=== PATIENT | male | born 1950 | race Caucasian/White ===

== ENCOUNTER 2016-06-14 10:46 | Day surgery (SDC) | payer BC ==
[2016-06-13 13:42] VITALS: BMI 24.1
[~2016-06-14 10:46] MED LIST: GENTAMICIN 400 MG in SODIUM CHLORIDE 0.9% 100 ML IVPB NR
[2016-06-14 11:00] VITALS: RESP 16; TEMP 97.9
[2016-06-14] MEDS ORDERED: LIDOCAINE 2% INJ 20 MG/ML SQ ONE (12:48)
[2016-06-14 13:48] VITALS: BP 149/75; PULSE 66
--- NOTE | 2016-07-23 10:20 | IR ---
EXAMINATION TYPE: IR cvc insert >=5 years DATE OF EXAM: 07/17/2016 12:23 PM COMPARISON: NONE CLINICAL HISTORY: Infection Needs long-term intravenous access for antibiotics. PROCEDURE: After informed consent, the skin overlying the upper extremity vein was localized with ultrasound and noted to be compressible and patent. An ultrasound image was obtained and submitted on the patient' s chart. The overlying skin was prepped and draped and Lidocaine was used for local anesthesia. A s kin teena was made with a scalpel. Access was gained to the vein under ultrasound guidance with a 21 gauge needle and a 0.018 inch wire was advanced. Access site was dilated with Peel-Away sheath and c atheter tailored to the appropriate length and advanced such that the distal tip is at the cavoatrial junction. Spot image was obtained verifying placement. Catheter was fixed to the skin with suture and a sterile dressing was placed following hemostasis. Catheter was aspirated and flushed with sali ne. Patient was discharged in stable condition without complication. Maximal barrier technique is ut ilized. Ultrasound image is documented on the chart. Ultrasound used with sterile technique. Fluoro time and fluoroscopic images submitted to document procedure: 0.2 minutes fluoroscopy time, 28 intraoperative C-arm images document the procedure IMPRESSION: STATUS POST ULTRASOUND AND FLUOROSCOPIC GUIDED PICC LINE PLACEMENT, READY FOR USE. THIS PROCEDURE WAS PERFORMED BY THE UNDERSIGNED.
== END 2016-06-14 14:35 | disposition home or self-care (01) ==
LOC: CATHCVL 10:46
PROVIDERS: ATTEND Radiology Diagnostic Radiology
DX: N39.0 Urinary tract infection, site not specified (principal); R97.21 Rising PSA following treatment for malignant neoplasm of prostate; E78.5 Hyperlipidemia, unspecified; I10 Essential (primary) hypertension; E11.9 Type 2 diabetes mellitus without complications; Z79.84 Long term (current) use of oral hypoglycemic drugs; G35 Multiple sclerosis; Z79.82 Long term (current) use of aspirin; Z79.899 Other long term (current) drug therapy
CPT/HCPCS: 36569; 76937; 77001; C1751; C1769; J2001

== ENCOUNTER → 2016-06-27 | Outpatient (CLI) | payer BC ==
[~2016-06-27] MED LIST changes: -GENTAMICIN 400 MG in SODIUM CHLORIDE 0.9% 100 ML IVPB NR; +SODIUM CHLORIDE 0.9% 250 ML in EMPTY BAG 1 BAG IV PRN; +SODIUM CHLORIDE 0.9% 500 ML in EMPTY BAG 1 BAG IV PRN
[2016-06-27 14:24] VITALS: BP 161/91; PULSE 94; RESP 16; TEMP 97.8
== END | disposition home or self-care (01) ==
LOC: PROCWHC3 13:30
PROVIDERS: ATTEND Urology
DX: Z45.2 Encounter for adjustment and management of vascular access device (principal)
CPT/HCPCS: 99213

== ENCOUNTER → 2017-09-16 | Outpatient (CLI) | payer BC, MEDICARE ==
[2017-09-16 15:54] LABS: Amorphous Sediment,Urine Occasional /hpf; Appearance,Urine Cloudy (Clear); Bilirubin,Urine Negative (Negative); Blood,Urine Negative (Negative); Color,Urine Yellow; Glucose,Urine (UA) Negative (Negative); Ketones,Urine Negative (Negative); Leukocyte Esterase,Urine Large (Negative); Nitrite,Urine Negative (Negative); PH, Urine 5.5 (5.0-8.0); Protein,Urine Trace (Negative); RBC,Urine 3 /hpf (0-5); Squamous Epithelial Cell,Urine <1 /hpf (0-4); WBC,Urine 167 /hpf (0-5)
== END | disposition home or self-care (01) ==
LOC: LABWHC1 15:05
PROVIDERS: ATTEND Urology
DX: C61 Malignant neoplasm of prostate (principal); N39.0 Urinary tract infection, site not specified
CPT/HCPCS: 36415; 81001; 84153; 87086

== ENCOUNTER → 2017-12-08 | Outpatient (CLI) | payer BC, MEDICARE ==
--- NOTE | 2017-12-08 15:22 | US ---
EXAMINATION TYPE: US kidneys/renal and bladder DATE OF EXAM: 12/08/2017 COMPARISON: CT 2014 CLINICAL HISTORY: UTI N39.0. EXAM MEASUREMENTS: Right Kidney: 10.3 x 4.4 x 5.6 cm Left Kidney: 10.5 x 4.6 x 4.9 cm Right Kidney: No hydronephrosis or masses seen Left Kidney: No hydronephrosis or masses seen Bladder: multiple stones noted Bilateral Jets seen: Yes There is no evidence for hydronephrosis at this point in time. No nephrolithiasis is seen. No nora s are identified. The urinary bladder is anechoic. Bilateral ureteral jets are seen. IMPRESSION: Multiple urinary bladder calculi noted.
--- NOTE | 2017-12-08 17:34 | XR ---
Abdomen HISTORY: Urinary tract infection No comparisons Frontal view of the abdomen submitted, no comparisons Multiple probable capsules of medication noted over the region of the rectum. Large amount of retaine d fecal debris present throughout the distribution of the colon. Lung bases are not included on the e xam. Mild spinal curvature is noted. Possible vascular calcifications within the pelvis. IMPRESSION: Correlate for fecal stasis.
== END | disposition home or self-care (01) ==
LOC: RADUSWWP 14:47
PROVIDERS: ATTEND Urology
DX: N21.0 Calculus in bladder (principal)
CPT/HCPCS: 74018; 76770

== ENCOUNTER → 2017-12-29 | Outpatient (CLI) | payer BC, MEDICARE ==
[2017-12-29 11:52] LABS: Appearance,Urine Clear (Clear); Bacteria,Urine Few /hpf; Bilirubin,Urine Negative (Negative); Blood,Urine Negative (Negative); Color,Urine Light Yellow; Glucose,Urine (UA) Negative (Negative); Ketones,Urine Negative (Negative); Leukocyte Esterase,Urine Moderate (Negative); Nitrite,Urine Negative (Negative); PH, Urine 6.5 (5.0-8.0); Protein,Urine Negative (Negative); Specific Gravity,Urine 1.008 (1.001-1.035); Urobilinogen,Urine <2.0 mg/dL (<2.0); WBC,Urine 18 /hpf (0-5)
[2017-12-29 11:54] LABS: Calcium 9.7 mg/dL (8.4-10.2); Potassium 4.7 mmol/L (3.5-5.1)
[2017-12-29 12:20] LABS: Basophils # (A) 0.1 k/uL (0-0.2); Basophils % (A) 1 %; Eosinophils # (A) 0.2 k/uL (0-0.7); Eosinophils % (A) 3 %; Lymphocytes % (A) 22 %; MCH 28.7 pg (25.0-35.0); MCHC 31.8 g/dL (31.0-37.0); MCV 90.2 fL (80.0-100.0); Mean Platelet Volume 7.5; Monocytes # (A) 0.6 k/uL (0-1.0); Monocytes % (A) 7 %; Neutrophils # (A) 6.1 k/uL (1.3-7.7); Neutrophils % (A) 67 %; Platelet Count 214 k/uL (150-450); RBC 4.88 m/uL (4.30-5.90); RDW 13.6 % (11.5-15.5); WBC 9.2 k/uL (3.8-10.6)
== END | disposition home or self-care (01) ==
LOC: LABPAT 11:12
PROVIDERS: ATTEND Urology
DX: Z01.812 Encounter for preprocedural laboratory examination (principal); E11.9 Type 2 diabetes mellitus without complications; R35.0 Frequency of micturition; N20.1 Calculus of ureter
CPT/HCPCS: 36415; 80048; 81001; 85025; 87077; 87086; 87186

== ENCOUNTER 2018-01-07 07:08 | Day surgery (SDC) | payer BC, MEDICARE ==
[2018-01-02 09:32] VITALS: BMI 25.8
--- NOTE | 2018-01-06 21:15 | P.GSHP ---
History of Present Illness H&P Date: 01/06/18 67 yo male with advanced multiple sclerosis who has a large bladder stone whon comes for cysto lithotripsy - Constitutional Constitutional: Reports chronic pain, Reports weakness - Genitourinary (Male) Genitourinary: Reports as per HPI - Musculoskeletal Musculoskeletal: Reports frequent falls, Reports gait dysfunction Past Medical History Past Medical History: Coronary Artery Disease (CAD), Diabetes Mellitus, Eye Disorder, Hyperlipidemia, Hypertension, Myocardial Infarction ([place]), Neurologic Disorder, Prostate Disorder Additional Past Medical History / Comment(s): DOUBLE VISION" , BLADDER STONES , HISTORY OF MULIPLE SCLEROSIS - SELF CATHERIZATION, USES WALKER AND WHEELCHAIR Last Myocardial Infarction Date:: 06/13/12 History of Any Multi-Drug Resistant Organisms: ESBL, MRSA Date of last positivie culture/infection: MRSA 08/08/15 ESBL 11/26/17 MDRO Source:: MRSA WOUND ON COCCYX,ESBL 11/26/17 Past Surgical History: Heart Catheterization With Stent Additional Past Surgical History / Comment(s): LITHOTRIPSY, 06/13/12 PTCA with 3 stents , WOUND CENTER PROCEDURES, PREVIOUS PICC LINE, CATARACT SURGERY - BILATERAL Past Anesthesia/Blood Transfusion Reactions: No Reported Reaction Additional Past Anesthesia/Blood Transfusion Reaction / Comment(s): Pt has never received blood. Date of Last Stent Placement:: 06/13/12 Smoking Status: Current every day smoker - Past Family History Father Family Medical History: Unable to Obtain Additional Family Medical History / Comment(s): Pt states his father had many health issues but is unable to recall what kind. He at age 72 yrs Mother Family Medical History: Cancer Additional Family Medical History / Comment(s): Mother of breast cancer at age 54yrs Medications and Allergies Home Medications Medication Instructions Recorded Confirmed Type Lisinopril [Zestril] 5 mg PO DAILY 03/23/15 01/02/18 History Metoprolol Tartrate [Lopressor] 25 mg PO BID 03/23/15 01/02/18 History Aspirin 81 mg PO DAILY #1 chew 03/29/15 01/02/18 Rx metFORMIN HCL [Glucophage] 750 mg PO DAILY 08/15/15 01/02/18 History Glatiramer Acetate [Copaxone] 40 mg INJ MOWEFR 09/14/15 01/02/18 History Atorvastatin [Lipitor] 40 mg PO HS 06/13/16 01/02/18 History Oxybutynin Chloride [Ditropan] 5 mg PO BID 06/13/16 01/02/18 History Cholecalciferol [Vitamin D3] 2,000 unit PO DAILY 06/16/16 01/02/18 History Cholecalciferol [Vitamin D3] 2,000 units PO QAM 06/16/16 01/02/18 History Ezetimibe [Zetia] 10 mg PO DAILY 01/02/18 01/02/18 History Unknown Antibiotic PO DAILY 01/02/18 History Allergies Allergy/AdvReac Type Severity Reaction Status Date / Time sulfamethoxazole Allergy DIFFICULTY Verified 01/02/18 08:41 [From Bactrim] WALKING, SHAKING trimethoprim [From Bactrim] Allergy DIFFICULTY Verified 01/02/18 08:41 WALKING, SHAKING Surgical - Exam - General well developed, well nourished, no distress - Eyes PERRL - ENT no hearing loss - Neck trachea midline - Respiratory normal expansion, normal respiratory effort - Cardiovascular Rhythm: regular - Abdomen Abdomen: soft, non tender - Genitourinary normal penis with no external lesions, testicles present - Integumentary no rash, no growths - Neurologic normal coordination, normal sensation - Musculoskeletal gait dysfxn due to MS other - Psychiatric oriented to time, oriented to person, oriented to place, speech is normal, memory intact Assessment and Plan Assessment: Impression bladder stones, MS Recommedndations: Cystolithtripsy
[~2018-01-07 07:08] MED LIST changes: +GENTAMICIN 100 MG in SODIUM CHLORIDE 0.9% 100 ML IVPB ONE; +HYDROmorphone 1 MG/ML 1 ML SYRINGE IVP PRN; +LACTATED RINGERS 1,000 ML IV SCH; +LIDOCAINE 1% 20 ML VIAL (10MG/ML) FOR IV START INTRADERMA PRN; -SODIUM CHLORIDE 0.9% 250 ML in EMPTY BAG 1 BAG IV PRN; -SODIUM CHLORIDE 0.9% 500 ML in EMPTY BAG 1 BAG IV PRN
[2018-01-07] MEDS ORDERED: ONDANSETRON 4 MG/2 ML VIAL ONE (08:00)
[2018-01-07 08:12] LABS: Glucose,Whole Blood 136 mg/dL (75-99)
[2018-01-07] MEDS ORDERED: ePHEDrine SULFATE/0.9% NACL/PF 50 MG/5 ML SYRINGE IV ONE (08:23)
[2018-01-07] MEDS ORDERED: MIDAZOLAM 2 MG/2 ML VIAL ONE (08:23)
[2018-01-07] MEDS ORDERED: PROPOFOL 10 MG/ML 20 ML VIAL IV ONE (08:23)
[2018-01-07] MEDS ORDERED: SUCCINYLCHOLINE CHLORIDE 100 MG/5 ML SYR IV ONE (08:23)
[2018-01-07] MEDS ORDERED: LIDOCAINE 1% INJ 10MG/ML (20 ML MDV) ONE (08:23)
[2018-01-07] MEDS ORDERED: fentaNYL (PF) 50 MCG/ML 2 ML AMP ONE (08:23)
[2018-01-07] MEDS ORDERED: LACTATED RINGERS 1,000 ML IV ONE (09:08)
--- NOTE | 2018-01-07 09:23 | P.OP ---
Date of Procedure: 01/07/18 Preoperative Diagnosis: Bladder stones, multiple sclerosis Postoperative Diagnosis: Same Procedure(s) Performed: Cystoscopy with cystolithotripsy Anesthesia: WARREN Surgeon: Koko Phillips Estimated Blood Loss (ml): 10 Pathology: other (Stones) Condition: stable Disposition: PACU Indications for Procedure: The patient is 67 with advanced multiple sclerosis. He has problems emptying his bladder. He does have enlarged prostate. He is found to have multiple bladder stones. He comes for cystoscopy lithotripsy Description of Procedure: Patient is brought to the operating suite. He is given a general anesthetic. He's placed lithotomy position with sterile prep and drape. Under direct vision the 17-Finnish scope with Foroblique lenses introduced in the urethra is normal. The prostatic urethra shows lateral lobe obstruction with an intravesical middle lobe a. The bladder mejía trabeculated. There 7 or 8 stones, with that a volume greater than 4-5 cm. With the 550 laser probe the stones are broken into tiny pieces. I then place a 25-Finnish sheath into the bladder and flush the stone fragments out. there is no active bleeding. Due to the larger prostate and edema I'll place a De La Vega catheter, 16-Finnish . This will be remain in overnight. The patient is awakened and returned recovery in good condition. He tolerated procedure well and will be discharged home upon recovery.
[2018-01-07 09:25] VITALS: TEMP 97.5
[2018-01-07 09:46] LABS: Glucose,Whole Blood 122 mg/dL (75-99)
[2018-01-07 10:14] VITALS: RESP 18
[2018-01-07 10:48] VITALS: BP 100/60; PULSE 88
== END 2018-01-07 11:10 | disposition home or self-care (01) ==
LOC: OR 07:08
PROVIDERS: ATTEND Urology
DX: N21.0 Calculus in bladder (principal); G35 Multiple sclerosis; G89.29 Other chronic pain; I25.10 Atherosclerotic heart disease of native coronary artery without angina pectoris; E11.9 Type 2 diabetes mellitus without complications; E78.5 Hyperlipidemia, unspecified; I10 Essential (primary) hypertension; H53.2 Diplopia; N40.0 Benign prostatic hyperplasia without lower urinary tract symptoms; I25.2 Old myocardial infarction; Z99.3 Dependence on wheelchair; Z95.5 Presence of coronary angioplasty implant and graft; F17.200 Nicotine dependence, unspecified, uncomplicated; Z79.84 Long term (current) use of oral hypoglycemic drugs; Z79.82 Long term (current) use of aspirin; Z79.899 Other long term (current) drug therapy; Z88.1 Allergy status to other antibiotic agents; Z88.2 Allergy status to sulfonamides; Z86.14 Personal history of Methicillin resistant Staphylococcus aureus infection; Z86.19 Personal history of other infectious and parasitic diseases
CPT/HCPCS: 82365; 52318; C1769; J2250; J1580; J2405; J2001; J3010; J0330; J2704

== ENCOUNTER → 2021-01-22 | Outpatient (CLI) | payer MEDICARE ==
--- NOTE | 2021-01-22 12:16 | XR ---
EXAMINATION TYPE: XR KUB DATE OF EXAM: 01/22/2021 COMPARISON: 10/14/2018 HISTORY: Bladder stone TECHNIQUE: One view abdominal series FINDINGS: The osseous structures are intact. The bowel gas pattern is nonspecific. Hypertrophic change the spi ne. There are 2 calcifications in the pelvis one on the left measuring 3 mm and one on the right oxana uring 2 mm which could be in the course of the ureter. No definite calcifications overlying the bladd er. Significant retained fecal debris correlate for constipation. Arthropathy of the hips. IMPRESSION: 1. Possible ureteral calculus particularly on the left correlate clinically.
== END | disposition home or self-care (01) ==
LOC: RADXRMAIN 11:47
PROVIDERS: ATTEND Urology
DX: N21.0 Calculus in bladder (principal)
CPT/HCPCS: 74018

== ENCOUNTER → 2024-03-23 | Outpatient (CLI) | payer MEDICARE ==
--- NOTE | 2024-03-23 11:13 | XR ---
EXAMINATION TYPE: XR KUB DATE OF EXAM: 03/23/2024 11:04 AM COMPARISON: 01/22/2021. CLINICAL INDICATION: Male, 74 years old with history of N20.0 kidney stone; TECHNIQUE: One radiographic view of the abdomen was obtained. FINDINGS: The bowel gas pattern is nonspecific without dilated loops of small or large bowel. . Fecal material and gas are demonstrated throughout the colon and rectum. There is no evidence for organome zurdo or pneumoperitoneum. The osseous structures are intact. No abnormal calcifications are present . Calcification projecting over the bladder possibly within the urinary bladder. Measuring up to 2.9 cm. IMPRESSION: 1. Calcification projecting over the location of the urinary bladder correlate for bladder stone guerita suring up to 3.0 cm. Not seen on 01/22/2021 2. Nonspecific bowel gas pattern without radiographic evidence for acute process. [facility], , 03/23/2024 11:10 AM
== END | disposition home or self-care (01) ==
LOC: RADXRMAIN 10:35
PROVIDERS: ATTEND Urology
DX: N20.0 Calculus of kidney (principal); N39.0 Urinary tract infection, site not specified
CPT/HCPCS: 74018

== ENCOUNTER → 2024-03-25 | Outpatient (CLI) | payer MEDICARE ==
[2024-03-25 12:22] LABS: Appearance,Urine Clear (Clear); Bilirubin,Urine Negative (Negative); Blood,Urine Large (Negative); Color,Urine Light Yellow; Glucose,Urine (UA) Negative (Negative); Ketones,Urine Negative (Negative); Leukocyte Esterase,Urine Moderate (Negative); Mucus,Urine Rare /hpf; Nitrite,Urine Negative (Negative); PH, Urine 5.5 (5.0-8.0); Protein,Urine Trace (Negative); RBC,Urine 3 /hpf (0-5); Specific Gravity,Urine 1.009 (1.001-1.035); Squamous Epithelial Cell,Urine <1 /hpf (0-4); Urobilinogen,Urine <2.0 mg/dL (<2.0); WBC,Urine 49 /hpf (0-5)
[2024-03-25 15:30] LABS: Blood Urea Nitrogen 11.4 mg/dL (9.0-27.0); Carbon Dioxide 21.8 mmol/L (21.6-31.8); Chloride 104 mmol/L (96-109); Glucose 164 mg/dL (70-110); Potassium 4.5 mmol/L (3.5-5.5); Sodium 139 mmol/L (135-145)
[2024-03-25 17:06] LABS: Basophils # (A) 0.09 X 10*3/uL (0.00-0.10); Basophils % (A) 0.7 %; Eosinophils # (A) 1.08 X 10*3/uL (0.04-0.35); Eosinophils % (A) 8.8 %; HCT 42.5 % (39.6-50.0); HGB 13.3 g/dL (13.0-17.0); Lymphocytes # (A) 1.55 X 10*3/uL (0.90-5.00); Lymphocytes % (A) 12.6 %; MCH 28.8 pg (27.0-32.0); MCHC 31.3 g/dL (32.0-37.0); Mean Platelet Volume 11.3 FL (9.5-12.2); Monocytes # (A) 1.12 X 10*3/uL (0.20-1.00); Monocytes % (A) 9.1 %; NRBC Per 100 WBC 0 X 10*3/uL (0.00-0.01); Neutrophils # (A) 8.38 X 10*3/uL (1.80-7.70); Neutrophils % (A) 68.3 %; Platelet Count 219 X 10*3/uL (140-440); RBC 4.62 X 10*6/uL (4.40-5.60); RDW 13.8 % (11.5-14.5); WBC 12.28 X 10*3/uL (4.50-10.00)
== END | disposition home or self-care (01) ==
LOC: LABPAT 09:34
PROVIDERS: ATTEND Urology
DX: Z01.818 Encounter for other preprocedural examination (principal); N21.9 Calculus of lower urinary tract, unspecified
CPT/HCPCS: 80048; 81001; 85025; 87086

== ENCOUNTER 2024-03-31 06:33 | Day surgery (SDC) | payer MEDICARE ==
[2024-03-30 09:45] VITALS: BMI 26.6
--- NOTE | 2024-03-30 17:15 | P.GSHP ---
History of Present Illness H&P Date: 03/30/24 74 male with ms, wheelchair bound and a ngb. He is on cic 7x/day. He has had several utis in the last few months. A kub identifies a 3 cm bladder stone. He comes for a cystolithotripsy. alternatives have been discussed. - Constitutional Constitutional: Denies chills, Denies fever - EENT Eyes: denies blurred vision, denies pain Ears, nose, mouth and throat: Denies headache, Denies sore throat - Cardiovascular Cardiovascular: Denies chest pain, Denies shortness of breath - Respiratory Respiratory: Denies cough, Denies 7 - Gastrointestinal Gastrointestinal: Denies abdominal pain, Denies diarrhea, Denies nausea, Denies vomiting - Genitourinary (Female) Genitourinary: Denies dysuria, Denies hematuria - Genitourinary (Male) Genitourinary: Denies dysuria, Denies hematuria - Musculoskeletal Musculoskeletal: Denies myalgias - Integumentary Integumentary: Denies pruritus, Denies rash - Neurological Neurological: Denies numbness, Denies weakness - Psychiatric Psychiatric: Denies anxiety, Denies depression - Endocrine Endocrine: Denies fatigue, Denies weight change Past Medical History Past Medical History: Coronary Artery Disease (CAD), Cancer, Diabetes Mellitus, Eye Disorder, Hyperlipidemia, Hypertension, Myocardial Infarction ([place]), Neurologic Disorder, Prostate Disorder Additional Past Medical History / Comment(s): MS, HX BLADDER STONE, SELF CATHING,prostate cancer , double vision bilaterally-wears prism lens in glasses, USES WHEELCHAIR Last Myocardial Infarction Date:: 06/13/12 History of Any Multi-Drug Resistant Organisms: ESBL, MRSA Date of last positivie culture/infection: MRSA 08/08/15 ESBL 12/29/17 MDRO Source:: MRSA WOUND ON COCCYX, ESBL URINE KL. PNEUMONIA Past Surgical History: Heart Catheterization With Stent Additional Past Surgical History / Comment(s): LITHOTRIPSY, 06/13/12 PTCA with 3 stents in RCA. WOUND CENTER PROCEDURES, PREVIOUS PICC LINE, BILAT CATARACTS REMOVED WITH LENS IMPLANTS Past Anesthesia/Blood Transfusion Reactions: No Reported Reaction Additional Past Anesthesia/Blood Transfusion Reaction / Comment(s): Pt has never received blood. Date of Last Stent Placement:: 06/13/12 Smoking Status: Current every day smoker - Past Family History Father Family Medical History: Unable to Obtain Additional Family Medical History / Comment(s): Pt states his father had many health issues but is unable to recall what kind. He at age 72 yrs Mother Family Medical History: Cancer Additional Family Medical History / Comment(s): Mother of breast cancer at age 54yrs Medications and Allergies Home Medications Medication Instructions Recorded Confirmed Type Metoprolol Tartrate [Lopressor] 25 mg PO DAILY 03/23/15 03/30/24 History lisinopriL [Zestril] 5 mg PO DAILY 03/23/15 03/30/24 History Aspirin 81 mg PO DAILY #1 chew 03/29/15 03/30/24 Rx Glatiramer Acetate [Copaxone] 40 mg INJ MOWEFR 09/14/15 03/30/24 History Atorvastatin [Lipitor] 40 mg PO HS 06/13/16 03/30/24 History oxyBUTYnin chloride [Ditropan] 5 mg PO BID 06/13/16 03/30/24 History Cholecalciferol [Vitamin D3] 2,000 units PO QAM 06/16/16 03/30/24 History Inulin/Chromium Picolinate [Fiber 2 tab PO DAILY 03/30/24 03/30/24 History Gummies Chew] Ubiquinol [Coqmax Ubiquinol] 100 mg PO BID 03/30/24 03/30/24 History metFORMIN HCL [Glucophage] 850 mg PO DAILY 03/30/24 03/30/24 History Allergies Allergy/AdvReac Type Severity Reaction Status Date / Time sulfamethoxazole Allergy DIFFICULTY Verified 03/30/24 09:30 [From Bactrim] WALKING, SHAKING trimethoprim [From Bactrim] Allergy DIFFICULTY Verified 03/30/24 09:30 WALKING, SHAKING Surgical - Exam - General well developed, well nourished, chronically ill - Eyes normal ocular movement, no icteric - ENT no hearing loss, no congestion - Neck no masses, trachea midline - Respiratory normal respiratory effort, clear to auscultation - Cardiovascular Rhythm: regular - Abdomen Abdomen: soft, non tender, no guarding, no rigid, no rebound - Genitourinary normal penis with no external lesions, testicles present - Neurologic wheel chair bound Results - Imaging Abdominal x-ray: report reviewed, image reviewed Assessment and Plan Assessment: Impression: ngb. MS. bladder stones Plan: cystolithotripsy
[2024-03-31] MEDS ORDERED: HYDROmorphone 0.5 MG/0.5 ML SYRINGE IVP PRN (07:00)
[2024-03-31 07:48] VITALS: RESP 16
[2024-03-31 07:57] LABS: Glucose,Whole Blood 163 mg/dL (70-110)
[2024-03-31] MEDS: LACTATED RINGERS 1,000 ML IV SCH (07:58)
[2024-03-31] MEDS: DEXAMETHASONE SOD PHOSPHATE 4 MG/ML 1 ML VIAL IVP STA (08:02)
[2024-03-31] MEDS: ONDANSETRON 4 MG/2 ML VIAL IVP STA (08:02)
[2024-03-31] MEDS: GENTAMICIN 100 MG in SODIUM CHLORIDE 0.9% 100 ML IVPB PRN (08:06)
[2024-03-31] MEDS: IV FLUID CONTINUATION 1,000 ML IV ONE (08:08)
--- NOTE | 2024-03-31 08:20 | XR ---
EXAMINATION TYPE: XR KUB DATE OF EXAM: 03/31/2024 7:09 AM COMPARISON: 03/23/2024 CLINICAL INDICATION: Male, 74 years old with history of Bladder Stone N21.9; PH TECHNIQUE: One radiographic view of the abdomen was obtained. FINDINGS: The bowel gas pattern is nonspecific without dilated loops of small or large bowel. . Fecal material and gas are demonstrated throughout the colon and rectum. There is no evidence for organome zurdo or pneumoperitoneum. The osseous structures are intact. No abnormal calcifications are present . Calcification projecting over the urinary bladder measuring up to 20 mm. Disc space narrowing osteo phyte formation of the spine. Mild osteophyte formation of the hips. IMPRESSION: 1. Bladder stone measuring up to 28 mm 2. Nonspecific bowel gas pattern without radiographic evidence for acute process. [facility], , 03/31/2024 8:17 AM
[2024-03-31] MEDS ORDERED: ROCURONIUM 10 MG/ML (5 ML VIAL) IV ONE (08:21)
[2024-03-31] MEDS ORDERED: PHENYLEPHRINE-0.9% NACL SYG 1,000 MCG/10 ML SYRINGE ONE (08:21)
[2024-03-31] MEDS ORDERED: MIDAZOLAM 2 MG/2 ML VIAL ONE (08:21)
[2024-03-31] MEDS ORDERED: NEOSTIGMINE 1 MG/ML 10 ML VIAL ONE (08:21)
[2024-03-31] MEDS ORDERED: PROPOFOL 10 MG/ML 20 ML VIAL IV ONE (08:21)
[2024-03-31] MEDS ORDERED: GLYCOPYRROLATE 0.2 MG/ML 2 ML VIAL ONE (08:21)
[2024-03-31] MEDS ORDERED: LIDOCAINE 1% INJ 10MG/ML (20 ML MDV) ONE (08:21)
[2024-03-31] MEDS ORDERED: fentaNYL (PF) 50 MCG/ML 2 ML AMP ONE (08:21)
[2024-03-31] MEDS: AMPICILLIN 1,000 MG in SODIUM CHLORIDE 0.9% 50 ML IVPB PRN (08:50)
--- NOTE | 2024-03-31 09:30 | P.OP ---
Date of Procedure: 03/31/24 Preoperative Diagnosis: bladder stone with neurogenic bladder Postoperative Diagnosis: same Procedure(s) Performed: cystoscopy with cystolithotripsy(large, greater than 3 cm) Anesthesia: WARREN Surgeon: Koko Phillips Estimated Blood Loss (ml): 10 Pathology: other (stone) Condition: stable Disposition: PACU Indications for Procedure: patient is 74. He has a neurogenic bladder. He is on intermittent catheterization. He has had a persistent infection this fall. KUB identified a 3+ centimeter bladder stone. He comes for cystoscopy lithotripsy Description of Procedure: the patient is brought to the operating suite. He is given a general endotracheal anesthetic. He is prepped and draped sterilely. Cystoscopy Foroblique lens and 21-Stateless sheath identifies a normal anterior urethra. The prostatic urethra shows trilobar obstruction. The bladder mejía trabeculated with cellules. The 3 cm stone was identified. With 1000 laser probe the stone was broken into tiny pieces and flushed out of the bladder. At the end of the procedure other than edema and some erythema from the lithotripsy the bladder is okay. A 16-Stateless De La Vega catheters placed and remain in the bladder about 72 hours. He will resume his CIC after that. Patient is awake and returned recovery in good condition. He'll be discharged home upon recovery and found the office in April.
[2024-03-31 09:36] VITALS: TEMP 97
[2024-03-31 10:44] VITALS: BP 111/74; PULSE 76
== END 2024-03-31 11:15 | disposition home or self-care (01) ==
LOC: OR 06:33
PROVIDERS: ATTEND Urology
DX: N21.0 Calculus in bladder (principal); N31.9 Neuromuscular dysfunction of bladder, unspecified; I25.10 Atherosclerotic heart disease of native coronary artery without angina pectoris; K21.9 Gastro-esophageal reflux disease without esophagitis; I10 Essential (primary) hypertension; E11.9 Type 2 diabetes mellitus without complications; E78.5 Hyperlipidemia, unspecified; F17.210 Nicotine dependence, cigarettes, uncomplicated; I25.2 Old myocardial infarction; Z99.3 Dependence on wheelchair; Z87.440 Personal history of urinary (tract) infections; Z87.01 Personal history of pneumonia (recurrent); Z85.46 Personal history of malignant neoplasm of prostate; Z86.14 Personal history of Methicillin resistant Staphylococcus aureus infection; Z95.5 Presence of coronary angioplasty implant and graft; Z80.3 Family history of malignant neoplasm of breast; Z79.84 Long term (current) use of oral hypoglycemic drugs; Z88.2 Allergy status to sulfonamides; Z88.1 Allergy status to other antibiotic agents; Z79.02 Long term (current) use of antithrombotics/antiplatelets; Z79.82 Long term (current) use of aspirin; Z79.899 Other long term (current) drug therapy
CPT/HCPCS: 82365; 74018; 52318; J2250; J1100; J2710; J2405; J2003; J3010; J1580; J0290; J2704; J2371; J1596

== ENCOUNTER → 2024-04-30 | Outpatient (CLI) | payer MEDICARE | END | disposition home or self-care (01) | LOC: LABWHC1 10:22 | PROVIDERS: ATTEND Urology | DX: C61 Malignant neoplasm of prostate (principal) | CPT/HCPCS: 36415; 84153 ==

== ENCOUNTER → 2024-07-09 | Outpatient (CLI) | payer MEDICARE | END | disposition home or self-care (01) | LOC: LABWHC1 10:42 | PROVIDERS: ATTEND Urology | DX: C61 Malignant neoplasm of prostate (principal) | CPT/HCPCS: 36415; 84153 ==